=== PATIENT | female | born 1960 | race Caucasian/White ===

== ENCOUNTER 2025-05-05 00:36 | Emergency (ER) | payer SELFPAY ==
[2025-05-05] VITALS (18 sets, daily range): BP systolic 124–178; BP diastolic 61–113; PULSE 68–96; RESP 16–20; TEMP 36.4; O2SAT 93–98
--- OUTSIDE RECORDS SUMMARY | 2025-05-05 00:43 | XMS_ITS | Clinical Summary ---
[facility] Address [address] Attn: Epic Prelude ADT ADARSHTATUM MARILEE EASON [id number] Care Team Providers Care Career Placement Services Counselor Name Role Phone Unavailable Primary Care Provider Unavailabl e Allergies No known active allergies Medications cetirizine (ZyrTEC) 10 mg tabletIndication s:Sinusitis, unspecified chronicity, unspecified location Take 1 Tablet (10 mg) by mouth daily. 15 Tablet 1 04/03/2020 Active Active Problems Problem Noted Date Diagnosed Date Patient denies relevant medical history 04/03/20 20 Family History Medical History Relation Name Comments Diabetes Brother 1 Stroke Brother 1 Hypertension Brother 2 Healthy Daughter 1 Healthy Daughter 2 Healthy Daughter 3 Healthy Daughter 4 Healthy Daughter 5 Prostate Cancer Father Hypertension Mother Kidney Disease Mother Diabetes Sister 1 Healthy Son 1 Healthy Son 2 Healthy Son 3 Healthy Son 4 Healthy Son 5 Relation Name Status Comments Brother 1 Alive Brother 2 Alive Brother 3 Alive Brother 4 Alive Brother 5 Alive Brother 6 Alive Brother 7 Alive Brother 8 Alive Brother 9 Alive Brother 10 Alive Daughter 1 Alive Daughter 2 Alive Daughter 3 Alive Daughter 4 Alive Daughter 5 Alive Father Alive Mother Alive Sister 1 Alive Sister 2 Alive Sister 3 Alive Sister 4 Alive Son 1 Alive Son 2 Alive Son 3 Alive Son 4 Alive Son 5 Alive Son 6 (Age ) Social History Tobacco Use Types Packs/Day Years Used Date Smoking Tobacco: Never Smokeless Tobacco: Never Alcohol Use Standard Drinks/Week Comments No 0 (1 standard drink = 0.6 oz pur e alcohol) Comments Unknown Sex and Gender Information Value Date Recorded Sex Assigned at Not on file Legal Sex Female 4:06 AM 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 MAINTENANCE TECHNICIAN Gender Identity Not on file Sexual Orientation Not on file Last Filed Vital Signs Vital Sign Reading Time Taken Comments Blood Pressure 124/76 04/03/2020 9:47 AM ZONE MAINTENANCE TECHNICIAN Pulse 94 04/03/2020 9:47 AM ZONE MAINTENANCE TECHNICIAN Temperature 37.1 C (98.8 F) 04/03/2020 9:47 AM ZONE MAINTENANCE TECHNICIAN Respiratory Rate 18 04/03/2020 9:47 AM ZONE MAINTENANCE TECHNICIAN Oxygen Saturation - - Inhaled Oxygen Concentration - - Weight 80.5 kg (177 lb 6.4 oz) 04/03/2020 9:47 A M ZONE MAINTENANCE TECHNICIAN Height 159.4 cm (5' 2.75 ) 04/03/2020 9:47 AM CS T Body Mass Index 31.68 04/03/2020 9:47 AM ZONE MAINTENANCE TECHNICIAN Plan of Treatment Health Maintenance Due Date Last Done Comments DTAP/TDAP/TD VACCINES (1 - Tdap) 1978 BREAST CANCER SCREENING 1999 COLORECTAL SCREENING 2004 Colorectal Cancer Screening 2004 FIT-DNA Q 3 years 2004 FIT/FOBT Q 1 year 2004 Flex Sig/CT Colonography Q 5 years 2004 PNEUMOCOCCAL VACCINE 50+ YEARS (1 of 1 - PCV) 05/02/20 09 ZOSTER VACCINE (1 of 2) 2009 OSTEOPOROSIS SCREENING 2024 INFLUENZA VACCINE (#1) 2024 RSV VACCINE (60+ or ) (1 - 1-dose 75+ series) 2034
--- OUTSIDE RECORDS SUMMARY | 2025-05-05 00:43 | XMS_ITS | Encounter Summary ---
Author Organization [facility] Address [address] [place] [address] Care Team Providers Care Chief Of Surgery Name Role Phone Unavailable Primary Care Provider Unavailabl e Encounter Details Date Type Department Care Team (Late st Contact Info) Description 03/17/2006 Outpatient Historical [facility] Medicine- [place] [address] [place] [address] Jose Manuel Patterson, [address] [place] [address] Acute Serous Otitis Media (Primary Dx) Social History Tobacco Use Types Packs/Day Years Used Date Smoking Tobacco: Never Assessed Comments Unknown Sex and Gender Information Value Date Recorded Sex Assigned at Not on file Legal Sex Female 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
--- OUTSIDE RECORDS SUMMARY | 2025-05-05 00:43 | XMS_ITS | Encounter Summary ---
Author Organization [facility] Address [address] [place] [address] Care Team Providers Care Cnc Maintenance Mechanic Name Role Phone Unavailable Primary Care Provider Unavailabl e Encounter Details Date Type Department Care Team (Late st Contact Info) Description 11/15/2001 Outpatient Historical 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
--- OUTSIDE RECORDS SUMMARY | 2025-05-05 00:43 | XMS_ITS | Clinical Summary ---
Author Organization [facility] Address [address] [place] [address] Care Team Providers Care Energy Conservation Engineer Name Role Phone Unavailable Primary Care Provider Unavailabl e Allergies No known active allergies Medications cetirizine (ZyrTEC) 10 mg tabletIndication s:Sinusitis, unspecified chronicity, unspecified location Take 1 Tablet (10 mg) by mouth daily. 15 Tablet 1 04/03/2020 Active Active Problems Problem Noted Date Diagnosed Date Patient denies relevant medical history 04/03/20 Family History Medical History Relation Name Comments Hypertension Brother 1 Diabetes Brother 2 Stroke Brother 2 Healthy Daughter 1 Healthy Daughter [...] = 0.6 oz pur e alcohol) Comments No Sex and Gender Information Value Date Recorded Sex Assigned at Not on file Legal Sex Female 5:28 AM EXPEDITIONARY [employer]CE COM[employer]S Gender Identity Not on file Sexual Orientation Not on file Last Filed Vital Signs Vital Sign Reading Time Taken Comments Blood Pressure 124/76 04/03/2020 9:47 AM EXPEDITIONARY [employer]S Pulse 94 04/03/2020 9:47 AM EXPEDITIONARY [employer] Temperature 37.1 C (98.8 F) 04/03/2020 9:47 AM EXPEDITIONARY [employer] Respiratory Rate 18 04/03/2020 9:47 AM EXPEDITIONARY [employer] Oxygen Saturation 95% 04/03/2020 9:47 AM EXPEDITIONARY [employer] Inhaled Oxygen Concentration - - Weight 80.5 kg (177 lb 6.4 oz) 04/03/2020 9:47 A M [employer] Height 159.4 cm (5' 2.75 ) 04/03/2020 9:47 AM CS T Body Mass Index 31.68 04/03/2020 9:47 AM EXPEDITIONARY [employer] Plan of Treatment Health Maintenance Due Date [...]
--- NOTE | 2025-05-05 01:00 | CTR_ITS ---
PROCEDURE INFORMATION: Exam: CT Abdomen And Pelvis With Contrast Exam date and time: 05/05/2025 1:29 AM Age: 65 years old Clinical indication: Abdominal pain; Additional info: Rlq pain TECHNIQUE: Imaging protocol: Computed tomography of the abdomen and pelvis with contrast. Radiation optimization: All CT scans at this facility use at least one of these dose optimization techniques: automated exposure control; mA and/or kV adjustment per patient size (includes targeted exams where dose is matched to clinical indication); or iterative reconstruction. Contrast material: [id number]; Contrast volume: 100 ml; Contrast route: INTRAVENOUS (IV); COMPARISON: No relevant prior studies available. RADIATION DOSE METRICS: Total DLP (mGy-cm): 874.11 FINDINGS: Liver: Hepatic steatosis. Gallbladder and biliary ducts: Normal. No calcified stones. No ductal dilation. Pancreas: Normal. No ductal dilation. Spleen: Normal. No splenomegaly. Adrenal glands: Normal. No mass. Kidneys and ureters: Normal. No hydronephrosis. Stomach and bowel: Diverticulosis, without acute diverticulitis. No small bowel obstruction. No free air. Appendix: No evidence of appendicitis. Intraperitoneal space: See Stomach and bowel finding. Vasculature: Atherosclerotic changes of the aorta. Lymph nodes: Unremarkable. No enlarged lymph nodes. Urinary bladder: Unremarkable as visualized. Reproductive: Large right adnexal mass, which measures 15.8 x 14.0 cm. This is likely enlarged teratoma and contains soft tissue, calcified, and large macroscopic fat (5.7 x 5.1 cm) components. Majority of the size of the masses from large multilobulated cystic components. Bones/joints: Degenerative changes of the spine. Soft tissues: See Reproductive finding. CT/CT abdomen pelvis w con* [id number] IMPRESSION: 1. Large right adnexal mass, which measures 15.8 x 14.0 cm. This is likely enlarged teratoma and contains soft tissue, calcified, and large macroscopic fat (5.7 x 5.1 cm) components. Majority of the size of the masses from large multilobulated cystic components. 2. Diverticulosis, without acute diverticulitis. No small bowel obstruction. No free air. 3. Hepatic steatosis.
[2025-05-05 01:05] LABS: Hematocrit 43.2 % (36-47); Hemoglobin 14.50 g/dL (11.27-16.99); Mean Corpuscular HGB Conc 33.6 g/dL (30-55); Mean Corpuscular Hemoglobin 29.8 pg (27-33); Mean Corpuscular Volume 88.9 fl (85-98); Nucleated Red Blood Cells % 0 %; Platelet Count 232 10^3/cmm (157-399); Red Blood Count 4.86 10^6/uL (3.85-5.65); White Blood Count 9.48 10^3/uL (3.29-11.43)
[2025-05-05] MEDS: ondansetron 2 mg/ML SDV 2 mL 4 MG IVP (01:07)
[2025-05-05] MEDS: morphine 4 mg/mL SDV 1 mL IVP ×2 (01:09→05:14)
[2025-05-05 01:16] LABS: Alanine Aminotransferase 23 U/L (0-33); Albumin Level 4.4 g/dL (3.5-5.2); Alkaline Phosphatase 64 U/L (35-105); Anion Gap 12.7 (5-19); Aspartate Amino Transferase 18 U/L (0-32); Blood Urea Nitrogen 12 mg/dL (8-23); Calcium 9.6 mg/dL (8.5-10.5); Carbon Dioxide 28 mmol/L (22-29); Chloride 103 mmol/L (98-107); Globulin 2.8 g/dL (1.3-4.6); Glucose 170 mg/dL (65-115); Lactic Sepsis W/Reflex 1.9 mmol/L (0.5-2.2); Lipase 25 U/L (13-60); Osmolality Calculated 294 mOsm/kg (285-295); Potassium 3.7 mmol/L (3.5-5.1); Sodium 140 mmol/L (136-145); Total Protein 7.2 g/dL (6.6-8.7)
[2025-05-05] MEDS: iohexol 350 mg/mL 500 mL Btl (per mL) IV (01:32)
--- NOTE | 2025-05-05 01:32 | ED_ITS ---
Documented by User: Toby Guevara DO 05/05/25 06:11 HPI - Abdominal Pain 2 General: Chief Complaint: Abdominal Pain Stated Complaint: LRQ abd pain Time Seen by Provider: 05/05/25 00:45 History of Present Illness: Patient is a 65-year-old female who presents with acute lower abdominal pain that began this morning. The pain has been intermittent throughout the day but has progressively worsened this evening. She describes the pain as radiating down to her groin area. Patient reports taking ibuprofen at 11:00 PM with minimal relief. She had a similar but milder episode of pain earlier today that temporarily improved with ibuprofen. The patient reports associated nausea with one episode of vomiting. She denies diarrhea, dysuria, hematuria, or fever, though mentions possible chills which she attributes to pain. Patient is currently traveling and staying in a camper in [place], [place]. Her home residence is in [place], [place]. Related Data Allergies Allergy/AdvReac Type Severity Reaction Status Date / Time ampicillin Allergy ALGY-Rash Verified 05/05/25 00:42 Review of Systems 2 Narrative: Constitutional: Possible chills, denies fever Gastrointestinal: Abdominal pain radiating to groin, nausea with one episode of vomiting, denies diarrhea Genitourinary: Denies dysuria, denies hematuria All other systems: Not documented or reviewed Physical Exam 2 Const: COMMON NORMALS: no acute distress GENERAL APPEARANCE: cooperative; not frail appearing HENMT: COMMON NORMALS: normocephalic, atraumatic and Normal external nose present HEAD & SCALP: normocephalic and atraumatic FACE & SINUS: normal facial exam and face symmetric NOSE: Normal external nose present Eye: COMMON NORMALS: Equal, round and reactive pupils present and EOMs intact bilaterally PUPIL: Yes Equal, round and reactive pupils present Neck/C-Spine: GENERAL: Yes trachea midline Chest: CHEST: Yes Symmetrical chest wall rise Resp: COMMON NORMALS: normal respiratory effort, No retractions, No use of accessory muscles and clear to auscultation bilaterally AUSCULTATION: clear to auscultation bilaterally Cardio: COMMON NORMALS: regular rate and regular rhythm RATE: regular rate RHYTHM: regular rhythm GI: COMMON NORMALS: Normal to inspection, nondistended, normoactive bowel sounds present PALPATION: Yes Tenderness to palpation present (GI) Details: RLQ : BLADDER/KIDNEY EXAM: Yes CVA tenderness on the right Back/Pelvis: GENERAL BACK: Yes CVA tenderness Extremity: COMMON NORMALS: no pedal edema Neuro: PERCY COMA SCALE: document GCS findings Percy coma scale eye opening: Spontaneous Percy coma scale verbal response: [place]ated [place] coma scale motor response: [place] coma scale total score: 15 S ENSORY EXAM: Yes extremities (intact) Psych: COMMON NORMALS: speech normal SPEECH: Yes normal speech Skin: COMMON NORMALS: no rashes or lesions noted GENERAL SKIN EXAM: no rashes or lesions noted Course 2 Vital Signs: Vital signs: Vital Signs Temperature 97.5 F L 05/05/25 00:37 Pulse Rate 96 05/05/25 06:33 Respiratory Rate 18 05/05/25 05:14 Blood Pressure 124/82 05/05/25 06:33 Pulse Oximetry 96 05/05/25 06:33 Oxygen Delivery Me thod Room Air 05/05/25 06:33 MDM - Abdominal Pain Medical Decision Making Acute Lower Abdominal Pain with Radiation to Groin: - Plan: Complete abdominal imaging (likely CT abdomen/pelvis) to evaluate for kidney stones and other acute abdominal pathology - Urinalysis to assess for infection or hematuria - CBC, CMP, and lipase to evaluate for inflammatory process - Pain management with IV analgesics as needed Vitals remained stable. She is mildly hypertensive. CBC BMP are normal, save an elevated blood sugar of 170. Urinalysis is negative. CRP is 3. Lipase is normal. CT reveals a large right adnexal mass measuring 15.8 x 14 cm, likely teratoma. Spoke with gynecology. He requests ultrasound to check blood flow to the adnexa on the right. He will review images. Patient is still having some pain after Toradol and morphine. Another dose of morphine has been ordered. Ultrasound is pending. Ultrasound shows blood flow. Spoke with our general merchandise manager here. They concern is that this is a very large mass, in a postmenopausal woman. Risk of malignancy goes up with age. They state that gynecology oncology is likely more qualified to deal with the mass at this size. We have a call out to [facility], they do not have a patient sitter oncologist until after 8 AM. We also have a call out to [facility] in case they have one available. The patient will be checked out at change of shift. Lab Data 05/05/25 00:50 05/05/25 00:50 Labs/Radiology: Radiology Impressions Abdomen/Pelvis CT 05/05/25 01:00 IMPRESSION: 1. Large right adnexal mass, which measures 15.8 x 14.0 cm. This is likely enlarged teratoma and contains soft tissue, calcified, and large macroscopic fat (5.7 x 5.1 cm) components. Majority of the size of the masses from large multilobulated cystic components. 2. Diverticulosis, without acute diverticulitis. No small bowel obstruction. No free air. 3. Hepatic steatosis. Pelvis Ultrasound 05/05/25 02:58 IMPRESSION: 1. A large multicystic adnexal mass with solid, cystic and fatty components as well as calcification, most suggestive of a teratoma. While this may represent a mature teratoma, given the patient's age and symptoms, consider non emergent follow-up MRI and gynecology evaluation. Malignant transformation can occur. 2. Thickened endometrium of 0.8 cm, abnormal for the patient's age. ADDENDUM: 05/05/25 0501 Findings were discussed with TOBY GUEVARA at 05/05/2025 4:59 AM STEAM LOCOMOTIVE FIRER/FIREMAN. Laboratory Results WBC 9.48 10^3/uL (3.29-11.43) 05/05/25 00:50 RBC 4.86 10^6/uL (3.85-5.65) 05/05/25 00:50 Hgb 14.50 g/dL (11.27-16.99) 05/05/25 00:50 Hct 43.2 % (36-47) 05/05/25 00:50 MCV 88.9 fl (85-98) 05/05/25 00:50 MCH 29.8 pg (27-33) 05/05/25 00:50 MCHC 33.6 g/dL (30-55) 05/05/25 00:50 RDW 13.2 % (12.1-15.1) 05/05/25 00:50 Plt Count 232 10^3/cmm (157-399) 05/05/25 00:50 MPV 9.3 fL (7.4-10.4) 05/05/25 00:50 Neut % (Auto) 61.5 % 05/05/25 00:50 Lymph % (Auto) 31.0 % 05/05/25 00:50 [place] % (Auto) 7.0 % 05/05/25 00:50 Eos % (Auto) 0.2 % 05/05/25 00:50 Baso % (Auto) 0.2 % 05/05/25 00:50 Neut # (Auto) 5.83 10^3/uL (1.8-7.7) 05/05/25 00:50 Lymph # (Auto) 2.9 10^3/uL (0.8-4.8) 05/05/25 00:50 [place] # (Auto) 0.7 10^3/uL (0.2-0.9) 05/05/25 00:50 Eos # (Auto) 0.0 10^3/uL (0.0-0.8) 05/05/25 00:50 Baso # (Auto) 0.0 10^3/uL (0.0-0.1) 05/05/25 00:50 Nucleated RBC % (auto) 0 % 05/05/25 00:50 Nucleated RBCs # 0.0 /100WBC 05/05/25 00:50 Sodium 140 mmol/L (136-145) 05/05/25 00:50 Potassium 3.7 mmol/L (3.5-5.1) 05/05/25 00:50 Chloride 103 mmol/L (98-107) 05/05/25 00:50 Carbon Dioxide 28 mmol/L (22-29) 05/05/25 00:50 Anion Gap 12.7 (5-19) 05/05/25 00:50 BUN 12 mg/dL (8-23) 05/05/25 00:50 Creatinine 0.7 mg/dL (0.5-0.9) 05/05/25 00:50 GFR Calculation 83.7 mL/min (90-130) L 05/05/25 00:50 Glucose 170 mg/dL (65-115) H 05/05/25 00:50 Calculated Osmolality 294 mOsm/kg (285-295) 05/05/25 00:50 Lactic Acid 1.9 mmol/L (0.5-2.2) 05/05/25 00:50 Calcium 9.6 mg/dL (8.5-10.5) 05/05/25 00:50 Total Bilirubin 0.6 mg/dL (0.15-1.2) 05/05/25 00:50 AST 18 U/L (0-32) 05/05/25 00:50 ALT 23 U/L (0-33) 05/05/25 00:50 Alkaline Phosphatase 64 U/L (35-105) 05/05/25 00:50 Lactate Dehydrogenase 187 U/L (135-214) 05/05/25 00:50 C-Reactive Protein 3.0 mg/L (0.0-4.9) 05/05/25 00:50 Total Protein 7.2 g/dL (6.6-8.7) 05/05/25 00:50 Albumin 4.4 g/dL (3.5-5.2) 05/05/25 00:50 Globulin 2.8 g/dL (1.3-4.6) 05/05/25 00:50 Lipase 25 U/L (13-60) 05/05/25 00:50 Tumor Marker AFP 1.9 ng/mL (0-8.3) 05/05/25 00:50 CA 125 Antigen 20.5 U/mL (0-35) 05/05/25 00:50 Ser , Semi-Qnt 1.27 mIU/mL 05/05/25 00:50 Urine Color Yellow (Yellow) 05/05/25 01:44 Urine Appearance Clear (CLEAR) 05/05/25 01:44 Urine pH 6.5 (5-7) 05/05/25 01:44 Ur Specific [place] 1.022 (1.005-1.030) 05/05/25 01:44 Urine Protein 1+ (Negative) A 05/05/25 01:44 Urine Glucose (UA) Negative (Normal) 05/05/25 01:44 Urine Ketones Trace (Negative) 05/05/25 01:44 Urine Blood Negative (Negative) 05/05/25 01:44 Urine Nitrate Negative (Negative) 05/05/25 01:44 Urine Bilirubin Negative (Negative) 05/05/25 01:44 Urine Urobilinogen 0.2 mg/dL (Negative) 05/05/25 01:44 Ur Leukocyte Esterase Negative (Negative) 05/05/25 01:44 Urine RBC 0-2 /hpf (0-2) 05/05/25 01:44 Urine WBC 0-5 /hpf (0-5) 05/05/25 01:44 Ur Squamous Epith Cells 0-5 /hpf (0-5) 05/05/25 01:44 Amorphous Sediment Not Reportable 05/05/25 01:44 Urine Bacteria None seen /hpf (NONE) 05/05/25 01:44 Hyaline Casts 0.81 /lpf 05/05/25 01:44 All radiology interpretation(s) finalized by discharge Discharge Plan Discharge Patient Disposition: Admitted As Inpatient 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 Qualified Code(s): D27.0 - Benign neoplasm of right ovary Condition: Stable Coding Level of Care Code ED 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 [employer] Documented by User: Talat Coates MD 05/05/25 06:44 HPI - Abdominal Pain 2 General: Chief Complaint: Abdominal Pain Stated Complaint: LRQ abd pain Time Seen by Provider: 05/05/25 00:45 Related Data Allergies Allergy/AdvReac Type Severity Reaction Status Date / Time ampicillin Allergy ALGY-Rash Verified 05/05/25 00:42 Physical Exam 2 Neuro: PERCY COMA SCALE: document GCS findings Percy coma scale total score: 15 Course 2 Vital Signs: Vital signs: Vital Signs Temperature 97.5 F L 05/05/25 00:37 Pulse Rate 96 05/05/25 06:33 Respiratory Rate 18 05/05/25 05:14 Blood Pressure 124/82 05/05/25 06:33 Pulse Oximetry 96 05/05/25 06:33 Oxygen Delivery Me thod Room Air 05/05/25 06:33 MDM - Abdominal Pain Medical Decision Making Acute Lower Abdominal Pain with Radiation to Groin: - Plan: Complete abdominal imaging (likely CT abdomen/pelvis) to evaluate for kidney stones and other acute abdominal pathology - Urinalysis to assess for infection or hematuria - CBC, CMP, and lipase to evaluate for inflammatory process - Pain management with IV analgesics as needed Vitals remained stable. She is mildly hypertensive. CBC BMP are normal, save an elevated blood sugar of 170. Urinalysis is negative. CRP is 3. Lipase is normal. CT reveals a large right adnexal mass measuring 15.8 x 14 cm, likely teratoma. Spoke with gynecology. He requests ultrasound to check blood flow to the adnexa on the right. He will review images. Patient is still having some pain after Toradol and morphine. Another dose of morphine has been ordered. Ultrasound is pending. Ultrasound shows blood flow. Spoke with our general merchandise manager here. They concern is that this is a very large mass, in a postmenopausal woman. Risk of malignancy goes up with age. They state that gynecology oncology is likely more qualified to deal with the mass at this size. We have a call out to [facility], they do not have a patient sitter oncologist until after 8 AM. We also have a call out to [facility] in case they have one available. The patient will be checked out at change of shift. Did speak to Boyd will transfer ER to ER for [place] Operator onc Lab Data 05/05/25 00:50 05/05/25 00:50 Labs/Radiology: Radiology Impressions Abdomen/Pelvis CT 05/05/25 01:00 IMPRESSION: 1. Large right adnexal mass, which measures 15.8 x 14.0 cm. This is likely enlarged teratoma and contains soft tissue, calcified, and large macroscopic fat (5.7 x 5.1 cm) components. Majority of the size of the masses from large multilobulated cystic components. 2. Diverticulosis, without acute diverticulitis. No small bowel obstruction. No free air. 3. Hepatic steatosis. Pelvis Ultrasound 05/05/25 02:58 IMPRESSION: 1. A large multicystic adnexal mass with solid, cystic and fatty components as well as calcification, most suggestive of a teratoma. While this may represent a mature teratoma, given the patient's age and symptoms, consider non emergent follow-up MRI and gynecology evaluation. Malignant transformation can occur. 2. Thickened endometrium of 0.8 cm, abnormal for the patient's age. ADDENDUM: 05/05/25 050 Findings were discussed with TOBY GUEVARA at 05/05/2025 4:59 AM STEAM LOCOMOTIVE FIRER/FIREMAN. Laboratory Results WBC 9.48 10^3/uL (3.29-11.43) 05/05/25 00:50 RBC 4.86 10^6/uL (3.85-5.65) 05/05/25 00:50 Hgb 14.50 g/dL (11.27-16.99) 05/05/25 00:50 Hct 43.2 % (36-47) 05/05/25 00:50 MCV 88.9 fl (85-98) 05/05/25 00:50 MCH 29.8 pg (27-33) 05/05/25 00:50 MCHC 33.6 g/dL (30-55) 05/05/25 00:50 RDW 13.2 % (12.1-15.1) 05/05/25 00:50 Plt Count 232 10^3/cmm (157-399) 05/05/25 00:50 MPV 9.3 fL (7.4-10.4) 05/05/25 00:50 Neut % (Auto) 61.5 % 05/05/25 00:50 Lymph % (Auto) 31.0 % 05/05/25 00:50 [place] % (Auto) 7.0 % 05/05/25 00:50 Eos % (Auto) 0.2 % 05/05/25 00:50 Baso % (Auto) 0.2 % 05/05/25 00:50 Neut # (Auto) 5.83 10^3/uL (1.8-7.7) 05/05/25 00:50 Lymph # (Auto) 2.9 10^3/uL (0.8-4.8) 05/05/25 00:50 [place] # (Auto) 0.7 10^3/uL (0.2-0.9) 05/05/25 00:50 Eos # (Auto) 0.0 10^3/uL (0.0-0.8) 05/05/25 00:50 Baso # (Auto) 0.0 10^3/uL (0.0-0.1) 05/05/25 00:50 Nucleated RBC % (auto) 0 % 05/05/25 00:50 Nucleated RBCs # 0.0 /100WBC 05/05/25 00:50 Sodium 140 mmol/L (136-145) 05/05/25 00:50 Potassium 3.7 mmol/L (3.5-5.1) 05/05/25 00:50 Chloride 103 mmol/L (98-107) 05/05/25 00:50 Carbon Dioxide 28 mmol/L (22-29) 05/05/25 00:50 Anion Gap 12.7 (5-19) 05/05/25 00:50 BUN 12 mg/dL (8-23) 05/05/25 00:50 Creatinine 0.7 mg/dL (0.5-0.9) 05/05/25 00:50 GFR Calculation 83.7 mL/min (90-130) L 05/05/25 00:50 Glucose 170 mg/dL (65-115) H 05/05/25 00:50 Calculated Osmolality 294 mOsm/kg (285-295) 05/05/25 00:50 Lactic Acid 1.9 mmol/L (0.5-2.2) 05/05/25 00:50 Calcium 9.6 mg/dL (8.5-10.5) 05/05/25 00:50 Total Bilirubin 0.6 mg/dL (0.15-1.2) 05/05/25 00:50 AST 18 U/L (0-32) 05/05/25 00:50 ALT 23 U/L (0-33) 05/05/25 00:50 Alkaline Phosphatase 64 U/L (35-105) 05/05/25 00:50 Lactate Dehydrogenase 187 U/L (135-214) 05/05/25 00:50 C-Reactive Protein 3.0 mg/L (0.0-4.9) 05/05/25 00:50 Total Protein 7.2 g/dL (6.6-8.7) 05/05/25 00:50 Albumin 4.4 g/dL (3.5-5.2) 05/05/25 00:50 Globulin 2.8 g/dL (1.3-4.6) 05/05/25 00:50 Lipase 25 U/L (13-60) 05/05/25 00:50 Tumor Marker AFP 1.9 ng/mL (0-8.3) 05/05/25 00:50 CA 125 Antigen 20.5 U/mL (0-35) 05/05/25 00:50 Ser , Semi-Qnt 1.27 mIU/mL 05/05/25 00:50 Urine Color Yellow (Yellow) 05/05/25 01:44 Urine Appearance Clear (CLEAR) 05/05/25 01:44 Urine pH 6.5 (5-7) 05/05/25 01:44 Ur Specific [place] 1.022 (1.005-1.030) 05/05/25 01:44 Urine Protein 1+ (Negative) A 05/05/25 01:44 Urine Glucose (UA) Negative (Normal) 05/05/25 01:44 Urine Ketones Trace (Negative) 05/05/25 01:44 Urine Blood Negative (Negative) 05/05/25 01:44 Urine Nitrate Negative (Negative) 05/05/25 01:44 Urine Bilirubin Negative (Negative) 05/05/25 01:44 Urine Urobilinogen 0.2 mg/dL (Negative) 05/05/25 01:44 Ur Leukocyte Esterase Negative (Negative) 05/05/25 01:44 Urine RBC 0-2 /hpf (0-2) 05/05/25 01:44 Urine WBC 0-5 /hpf (0-5) 05/05/25 01:44 Ur Squamous Epith Cells 0-5 /hpf (0-5) 05/05/25 01:44 Amorphous Sediment Not Reportable 05/05/25 01:44 Urine Bacteria None seen /hpf (NONE) 05/05/25 01:44 Hyaline Casts 0.81 /lpf 05/05/25 01:44 Discharge Plan Discharge Patient Disposition: Admitted As Inpatient 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
[2025-05-05 01:57] LABS: Glucose Urine UA Negative (Normal); Nitrate Urine Negative (Negative); Specific Gravity, Urine 1.022 (1.005-1.030)
[2025-05-05 01:59] LABS: Add Urine Microscopic? YES
--- NOTE | 2025-05-05 02:58 | USR_ITS ---
PROCEDURE INFORMATION: Exam: US Pelvis, Complete, Non-Obstetric Exam date and time: 05/05/2025 3:17 AM Age: 65 years old Clinical indication: Abnormal findings; Abnormal imaging test; Additional info: Rlq adenexal mass TECHNIQUE: Imaging protocol: Transabdominal pelvic nonobstetric ultrasound. Complete exam. Real time ultrasound with image documentation. COMPARISON: CT abdomen pelvis w con* [id number] 05/05/2025 1:29 AM FINDINGS: Uterus: The uterus is normal in size, measuring 9.6 x 4.3 x 5.8 cm. It contains an abnormally thickened endometrial stripe of 0.8 cm. Right ovary/adnexa: In the right adnexa, there is a complex, multi cystic mass measuring 14.2 x 15.3 x 10.7 cm. The mass contains solid, cystic and adipose components as well as movement material within a cyst. Left ovary/adnexa: The left ovary is not identified. Intraperitoneal space: No intraperitoneal fluid. Urinary bladder: Normal. Other findings: The solid component contains Doppler flow and some calcification. US/US pelvic complete* [id number] IMPRESSION: 1. A large multicystic adnexal mass with solid, cystic and fatty components as well as calcification, most suggestive of a teratoma. While this may represent a mature teratoma, given the patient's age and symptoms, consider non emergent follow-up MRI and gynecology evaluation. Malignant transformation can occur. 2. Thickened endometrium of 0.8 cm, abnormal for the patient's age.
[2025-05-05 04:05] LABS: CA 125 20.5 U/mL (0-35)
[2025-05-05] MEDS: morphine 4 mg/mL SDV 1 mL 2 MG IVP (04:06)
[2025-05-05 04:16] LABS: Tumor Marker Alpha Fetoprotein 1.9 ng/mL (0-8.3)
--- NOTE | 2025-05-05 06:56 | PC.NURSE ---
Report called to Abi LIU RN at [facility].
[2025-05-05] MEDS: HYDROmorphone 0.5 MG/0.5 ML INJ 1 MG IVP ×2 (07:15→08:43)
== END 2025-05-05 08:48 | disposition admitted as inpatient to this hospital (09) ==
PROVIDERS: Emergency Medicine; Emergency Provider Emergency Medicine
DX: D27.0 Benign neoplasm of right ovary (principal)
CPT/HCPCS: 74177; 76856; 80053; 81001; 82105; 83605; 83615; 83690; 84702; 85025; 86140; 86304; 96374; 96375; 96376; 99285; J1171; J1885; J2270; J2405; J7030